=== PATIENT | male | born 1960 | race Caucasian/White ===

== ENCOUNTER 2021-06-11 05:41 | Day surgery (SDC) | payer OTHER ==
[~2021-06-11] VITALS: Ht 170 cm; Wt 102.0 kg
[~2021-06-11 05:41] MED LIST: ALEVE220 M1 PO; ALLOPURINOL300 MG PO; ASCORBIC ACID500 MG PO; ASPIRIN EC81 MG PO; ATORVASTATIN CA80 MG PO; CO Q-10100 MG PO; DAILY MULTIVIT1 EACH PO; FENOFIBRATE43 MG PO; NORVASC5 MG PO; OMEGA 3 1,0001 EACH PO; PREDNISONE2.5 MG PO; SAW PALMETTO450 MG PO; TOPROL XL 25MG25 MG PO; VITAMIN D3 PO; ZINC50 M1 PO
--- NOTE | 2021-06-11 11:06 | NUR ---
PT. HAD A RTHR THIS DATE. HE WILL D/C HOME WITH SPOUSE. [facility] TO DELIVER A RW UPON DISCHARGE. PT. REQUESTED [facility]. FIRST APPT. IS 06/13/21 @ 11:30 A.M. [place] PAPERWORK GIVEN TO PT.
--- NOTE | 2021-06-11 13:49 | NUR ---
ON ARRIVAL BS CHECK 194, NAUSEA, MORGAN STATED CHECK AFTER EATING, PATIENT ONLY ATE FEW BITES OF LUNCH, RECHECK 174 STOOD WITH THERAPY AND NAUSEA AND DIZZY. SPOKE WITH MORGAN AND INFORMED AND SHE WAS AGREEABLE TO HOLDING PO MEDS AND NOON INSULIN AT THIS TIME
[2021-06-12 06:29] LABS: BASOPHIL 0.2 % (0-2); EOSINOPHIL 0.1 % (0-5); HGB 11.6 g/dl (13.2-18.0); LYMPHOCYTE 8.1 % (15-48); MCH 29.2 pg (25.0-31.0); MCHC 33.1 g/dL (32.0-36.0); MCV 88.2 fL (78.0-100.0); NRBC 0; PLT 203 K/uL (150-400); RBC 3.97 M/uL (4.70-6.00); RDW 14.6 % (11.5-14.0); WBC 12.3 K/uL (4.0-10.5)
[2021-06-12 06:34] LABS: BUN/CREAT RATIO (CALC) 17.3 RATIO; CREATININE 0.98 mg/dL (0.67-1.17); POTASSIUM 3.9 mmol/L (3.5-5.1)
[2021-06-12] MEDS ORDERED: XARELTO10 MG PO ×2 (08:16→09:58)
[2021-06-12] MEDS ORDERED: FEOSOL325 MG PO (08:16)
[2021-06-12] MEDS ORDERED: OXYCODONE-ACET1 EAC1 PO (08:16)
[2021-06-12] MEDS ORDERED: ONDANSETRON HCL4 MG PO (09:56)
--- NOTE | 2021-06-12 10:38 | NUR ---
PT D/C HOME THIS DATE WITH SPOUSE. PT SIGNED CHOICE PAPERWORK AND COPY GIVEN. TC TO [facility]. SPOKE WITH ALEXANDR, SHE ADVISED THAT THE PT COPAY FOR XARELTO IS $25.00.
== END 2021-06-12 11:20 | disposition home health service (06) ==
LOC: FAS 05:41 → FMS 05:41 → FOR 07:00 → FAS 07:00 → FOR 08:30 → FMS 08:53 → FAS 08:53 → FMS 08:53 → FAS 06-12 11:20
PROVIDERS: Legal Medicine
DX: M16.11 Unilateral primary osteoarthritis, right hip (principal); I95.81 Postprocedural hypotension; R11.0 Nausea; E11.9 Type 2 diabetes mellitus without complications; I25.10 Atherosclerotic heart disease of native coronary artery without angina pectoris; Z98.52 Vasectomy status; Z88.1 Allergy status to other antibiotic agents; Z88.5 Allergy status to narcotic agent; Z88.8 Allergy status to other drugs, medicaments and biological substances
CPT/HCPCS: 36415; 73501; 76000; 80048; 85025; 86850; 86900; 86901; 94010; 97110; 97162; 97166; 97530-GP; 97535; C1713; C1776; J0171; J0697; J1100; J1885; J2250; J2405; J2704; J2710; J2795; J3010; J7050; J7120